=== PATIENT | female | born 1970 | race Caucasian/White ===

== ENCOUNTER 2018-10-20 15:32 | Emergency (ER) | payer OTHER ==
[~2018-10-20] VITALS: Ht 152.4 cm; Wt 59.6 kg
[2018-10-20 15:41] VITALS: Ht 152.4 cm; Wt 59.6 kg
[2018-10-20] MEDS ORDERED: FAMOTIDINE 20 MG TAB PO STA (16:12)
[2018-10-20] MEDS ORDERED: ONDANSETRON 4 MG INJ IV STA (16:12)
[2018-10-20] MEDS ORDERED: KETOROLAC 15 MG INJ IV STA (16:12)
[2018-10-20] MEDS ORDERED: SOD CHLORIDE 0.9% 1,000 ML IV STA (16:12)
[2018-10-20] MEDS ORDERED: LIDOCAINE/MYLANTA 40 ML BTL PO STA (16:12)
[2018-10-20] MEDS ORDERED: BELLADONNA/PHENOBARBITAL TAB PO STA (16:12)
--- NOTE | 2018-10-20 16:42 | ERD ---
ER Documentation Chief Complaint Chief Complaint epigastric pain x 5 days ; vomitting 4 x since yesterday HPI 48-year-old woman complaining of epigastric and right upper quadrant abdominal pain and burning x5 days she has had a few episodes of clear nonbloody nonbilious emesis as well but denies hematemesis, no blood per rectum or melena, no fevers or chills, no chest pain or shortness of breath. Patient denies chest pain and denies dysuria. Epigastric pain is been nonradiating nonexertional. She was sent here by medical clinic to rule out appendicitis given his above symptoms. ROS All systems reviewed and are negative except as per history of present illness. Medications Home Meds Active Scripts Esomeprazole Mag Trihydrate (Nexium) 40 Mg Capsule.dr, 20 MG PO DAILY, #30 CAP Prov:BINA ZAMBRANO MD 10/20/18 Famotidine* (Pepcid*) 20 Mg Tablet, 20 MG PO BID for 14 Days, TAB Prov:BINA ZAMBRANO MD 10/20/18 Mag Hydrox/Al Hydrox/Simeth (Maalox Advanced Suspension) 355 Ml Oral.susp, 2 TSP PO TID PRN for PAIN, #20 OZ Prov:BINA ZAMBRANO MD 10/20/18 Reported Medications Aspirin/Acetaminophen/Caffeine (Excedrin Migraine Caplet) 1 Each Tablet, 1 EACH PO NEEDED, TAB 10/20/18 Allergies Allergies: Coded Allergies: No Known Allergy (Unverified , 10/20/18) PMhx/Soc Medical and Surgical Hx: pt denies Medical Hx, pt denies Surgical Hx Hx Alcohol Use: No Hx Substance Use: No Hx Tobacco Use: No Smoking Status: Never smoker FmHx Family History: No diabetes Physical Exam Vitals Vital Signs Date Temp Pulse Resp B/P (MAP) Pulse Ox O2 O2 Flow FiO2 Time Delivery Rate 10/20/18 78 16 128/79 98 Room Air 17:51 (95) 10/20/18 99.3 84 18 135/79 98 15:41 (97) Physical Exam GENERAL: Well-developed, well-nourished, well-hydrated, in no apparent distress, looks nontoxic in appearance HEENT: Moist mucous membranes, pink conjunctiva, no cervical spine tenderness or step-off deformities, no goiter, no jaundice or icterus, extraocular movements intact without pain. No submandibular induration, and no pharyngeal erythema NEURO: Alert and oriented 3, cranial nerves II through XII intact bilaterally, pupils equal round reactive to light, no focal deficits or facial asymmetry, sensation intact distally Strength 5/5 in upper and lower extremities bilaterally CARDIAC: Regular rate and rhythm, no murmurs rubs or gallops LUNGS: Clear bilaterally no wheezing crackles or stridor ABDOMEN: Soft nontender, no guarding, no rigidity, no rebound, no psoas sign no obturator sign. Normoactive bowel sounds SKIN: Warm and dry to touch, no abrasions, contusions, or hematomas, no lacerations, no ecchymosis, no target lesions, and without ulcers EXTREMITIES: No clubbing cyanosis or edema, calves are bilaterally symmetrical, no Homans sign, no popliteal cord sign. Distal pulses equal and bilateral PSYCH: Normal affect without agitation or irritability Result Diagram: 10/20/18 1619 10/20/18 1619 Results 24 hrs Laboratory Tests Test 10/20/18 16:12 10/20/18 16:19 POC Beta HCG, Qualitative NEGATIVE White Blood Count 5.0 10^3/ul Red Blood Count 4.52 10^6/ul Hemoglobin 11.1 g/dl Hematocrit 35.7 % Mean Corpuscular Volume 79.0 fl Mean Corpuscular Hemoglobin 24.6 pg Mean Corpuscular Hemoglobin Concent 31.1 g/dl Red Cell Distribution Width 15.4 % Platelet Count 277 10^3/UL Mean Platelet Volume 10.2 fl Immature Granulocytes % 0.200 % Neutrophils % 69.5 % Lymphocytes % 19.9 % Monocytes % 9.0 % Eosinophils % 1.2 % Basophils % 0.2 % Nucleated Red Blood Cells % 0.0 /100WBC Immature Granulocytes # 0.010 10^3/ul Neutrophils # 3.5 10^3/ul Lymphocytes # 1.0 10^3/ul Monocytes # 0.5 10^3/ul Eosinophils # 0.1 10^3/ul Basophils # 0.0 10^3/ul Nucleated Red Blood Cells # 0.0 10^3/ul Prothrombin Time 12.7 Sec Prothrombin Time Ratio 1.0 INR International Normalized Ratio 0.94 Activated Partial Thromboplast Time 29.9 Sec Urine Color YELLOW Urine Clarity SLIGHTLY CLOUDY Urine pH 5.0 Urine Specific [place] 1.028 Urine Ketones NEGATIVE mg/dL Urine Nitrite NEGATIVE mg/dL Urine Bilirubin NEGATIVE mg/dL Urine Urobilinogen NEGATIVE mg/dL Urine Leukocyte Esterase NEGATIVE Michelet/ul Urine Microscopic RBC 1 /HPF Urine Microscopic WBC 3 /HPF Urine Squamous Epithelial Cells FEW /HPF Urine Mucus MANY /HPF Urine Hemoglobin 2+ mg/dL Urine Glucose NEGATIVE mg/dL Urine Total Protein NEGATIVE mg/dl Sodium Level 139 mmol/L Potassium Level 3.3 mmol/L Chloride Level 107 mmol/L Carbon Dioxide Level 24 mmol/L Anion Gap 8 Blood Urea Nitrogen 13 mg/dl Creatinine 0.51 mg/dl Est Glomerular Filtrat Rate mL/min > 60 mL/min Glucose Level 101 mg/dl Calcium Level 7.5 mg/dl Total Bilirubin 0.2 mg/dl Direct Bilirubin 0.00 mg/dl Indirect Bilirubin 0.2 mg/dl Aspartate Amino Transf (AST/SGOT) 21 IU/L Alanine Aminotransferase (ALT/SGPT) 21 IU/L Alkaline Phosphatase 74 IU/L Total Protein 6.9 g/dl Albumin 3.7 g/dl Globulin 3.20 g/dl Albumin/Globulin Ratio 1.15 Lipase 117 U/L Current Medications Medications Dose Sig/Ute Start Time Status Last (Trade) Ordered Route PRN Stop Time Admin Dose Reason Admin Sodium 1,000 ml @ Q1H STAT 10/20/18 DC 10/20/18 Chloride 1,000 mls/hr IV 16:12 10/20/18 16:25 17:11 Ondansetron 4 mg ONCE STAT 10/20/18 DC 10/20/18 HCl (Zofran IV 16:12 10/20/18 16:24 Inj) 16:14 Famotidine 20 mg ONCE STAT 10/20/18 DC 10/20/18 (Pepcid) PO 16:12 10/20/18 16:24 16:14 40 ml ONCE STAT 10/20/18 DC 10/20/18 Miscellaneous PO 16:12 10/20/18 16:24 Medication 16:14 (Gi Cocktail (2)) Belladonna/ 2 tab ONCE STAT 10/20/18 DC 10/20/18 Phenobarbital PO 16:12 10/20/18 16:24 () 16:14 Ketorolac 15 mg ONCE STAT 10/20/18 DC 10/20/18 Tromethamine IV 16:12 10/20/18 16:25 (Toradol) 16:14 Procedures/MDM IV line was established patient was placed on school lunch monitor rhythm strip revealed a sinus rhythm at about 80 bpm with upright P and T waves. Patient was afebrile I administered 1 L normal saline IV, Zofran 4 mg IV, GI cocktail p.o., fa motidine 20 mg p.o. and Toradol 15 mg IV Gallbladder ultrasound was performed. It was negative for acute inflammatory changes or signs of cholecystitis. CBC and electrolytes are normal, liver function tests were normal, urine analysis CT scan of the abdomen and pelvis was performed,IMPRESSION: No evidence of bowel obstruction or inflammation. There is no appendicitis. Enlarged heterogeneous fibroid uterus. The adnexal structures are obscured. Mild atherosclerotic calcification. No renal or ureteral calculi with no evidence of hydronephrosis. Bilateral low-density adrenal adenomas. Differential diagnoses considered, included but not limited to acute coronary syndrome, pulmonary embolism, aortic dissection, abdominal aortic aneurysm, sepsis, stroke, meningitis, encephalitis, pneumonia, appendicitis, cholecystitis, bowel obstruction, pyelonephritis, nephrolithiasis, cystitis, as well as metabolic, hematologic, and electrolyte abnormalities. As well as abscess, cellulitis, fractures, and dislocations. Patient feels much better at this time, and vital signs are normal, symptoms have improved. I did give strict instructions to return to the ED if symptoms continue or worsen, patient will otherwise follow-up with primary care physician. Patient understood instructions and agreed to plan. Disclaimer: Inadvertent spelling and grammatical errors are likely due to EHR/ dictation software use and do not reflect on the overall quality of patient care. Also, please note that the electronic time recorded on this note does not necessarily reflect the actual time of the patient encounter. Departure Diagnosis: Primary Impression: Abdominal pain Abdominal location: epigastric Qualified Codes: R10.13 - Epigastric pain Condition: Good BINA ZAMBRANO MD October 20, 2018 16:42
[2018-10-20] MEDS ORDERED: ASPI1TAB31 PO (16:59)
[2018-10-20] MEDS ORDERED: ESOM40CA PO (17:34)
[2018-10-20] MEDS ORDERED: FAMO-96 PO (17:34)
[2018-10-20] MEDS ORDERED: MAG355OR14 PO (17:34)
[2018-10-20 19:15] VITALS: BP 118/88; PULSE 77; RESP 18
== END 2018-10-20 19:26 | disposition home or self-care (01) ==
LOC: E/R 15:32
DX: R10.13 Epigastric pain (principal); R11.10 Vomiting, unspecified; Z79.82 Long term (current) use of aspirin
CPT/HCPCS: 36415; 74176; 76705; 80053; 81001; 81025; 83690; 85025; 85610; 85730; 96361; 96374; 96375; J1885; J2405; J7030; Z7502; Z7610

== ENCOUNTER 2018-11-02 10:17 | Emergency (ER) | payer OTHER ==
[~2018-11-02] VITALS: Ht 157.5 cm; Wt 60.0 kg
[~2018-11-02 10:17] MED LIST: ASPI1TAB31 PO; ESOM40CA PO; FAMO-96 PO; MAG355OR14 PO
[2018-11-02 10:20] VITALS: Ht 157.5 cm; Wt 60.0 kg
[2018-11-02] MEDS ORDERED: SOD CHLORIDE 0.9% 1,000 ML IV ONE (11:00)
[2018-11-02] MEDS ORDERED: METOCLOPRAMIDE 10 MG INJ IV ONE (11:00)
[2018-11-02] MEDS ORDERED: ACETAMINOPHEN 325 MG TAB PO ONE (11:00)
[2018-11-02] MEDS ORDERED: DIPHENHYDRAMINE 50 MG INJ IV ONE (11:00)
[2018-11-02] MEDS ORDERED: ONDA4TAB14 PO (12:58)
[2018-11-02] MEDS ORDERED: BUTA1CAP38 PO (12:58)
--- NOTE | 2018-11-02 13:04 | ERD ---
ER Documentation Chief Complaint Chief Complaint C/O HEADACHE , VOMITING /DIZZINESS , ONSET TODAY HPI 48-year-old female patient with a past medical history of migraine, hypertension, diabetes presents to the ED complaining of dizziness, headache, chills, body aches that started last night. States that she has some photophobia and phonophobia with her headache. Reports that her headache is located in the temporal region and was a gradual onset. Describes her pain as achy and rates it an 8 out of 10. Reports that last night she also had an episode of chest pain however it resolved. Patient reports that she feels anxious. Denies any shortness of breath, constipation, abdominal pain, neck stiffness. ROS All systems reviewed and are negative except as per history of present illness. Medications Home Meds Active Scripts Ondansetron (Ondansetron Odt) 4 Mg Tab.rapdis, 4 MG PO Q6H PRN for NAUSEA AND/OR VOMITING, #10 TAB Prov:JOSE ANGEL GILL PA-C 11/02/18 Aiethndbou-Fpsmbdtnnsvhc-Segerfqw* (Fioricet*) 50-300-40 Mg Capsule, 1 CAP PO Q4H PRN for HEADACHE, #20 CAP Prov:JOSE ANGEL GILL PA-C 11/02/18 Esomeprazole Mag Trihydrate (Nexium) 40 Mg Capsule.dr, 20 MG PO DAILY, #30 CAP Prov:BINA ZAMBRANO MD 10/20/18 Famotidine* (Pepcid*) 20 Mg Tablet, 20 MG PO BID for 14 Days, TAB Prov:BINA ZAMBRANO MD 10/20/18 Mag Hydrox/Al Hydrox/Simeth (Maalox Advanced Suspension) 355 Ml Oral.susp, 2 TSP PO TID PRN for PAIN, #20 OZ Prov:BINA ZAMBRANO MD 10/20/18 Reported Medications Aspirin/Acetaminophen/Caffeine (Excedrin Migraine Caplet) 1 Each Tablet, 1 EACH PO NEEDED, TAB 10/20/18 Allergies Allergies: Coded Allergies: No Known Allergy (Unverified , 10/20/18) PMhx/Soc Medical and Surgical Hx: pt denies Surgical Hx History of Surgery: No Anesthesia Reaction: No Hx Neurological Disorder: No Hx Respiratory Disorders: No Hx Cardiac Disorders: Yes (HTN) Hx Psychiatric Problems: No Hx Miscellaneous Medical Probl: Yes (MIGRAINE HEADACHE) Hx Alcohol Use: No Hx Substance Use: No Hx Tobacco Use: No Smoking Status: Never smoker FmHx Family History: No diabetes, No coronary disease Physical Exam Vitals Vital Signs Date Temp Pulse Resp B/P (MAP) Pulse Ox O2 O2 Flow FiO2 Time Delivery Rate 11/02/18 98.1 82 18 142/90 98 10:20 (107) Physical Exam Const: Oog-lvn-zwghtustl, well-nourished. In no acute distress. Head: Atraumatic, normocephalic Eyes: Normal Conjunctiva without injection. No purulent discharge. PERRLA. EOMI ENT: Normal external ear. Ear canal without erythema. Tympanic membrane pearly linn without effusion or bulging. Nasal canal clear with normal turbinates. Moist oropharynx without tonsillar exudates. Non-erythematous pharynx. Uvula midline. No drooling. No trismus. Neck: No cervical midline tenderness. Full range of motion. No meningismus. No cervical lymphadenopathy. No JVD. Resp: Clear to auscultation bilaterally. No wheezing, rhonchi, rales, or crackles. No accessory muscle use. No retractions. Cardio: Regular rate and rhythm. No murmurs, rubs or gallops. Abd: Soft, non tender, non distended. Normal bowel sounds. No palpable masses. No rebound tenderness. No guarding. Negative McBurney's Point. Negative Mu rphy's Sign. Skin: Normal skin turgor. No petechiae or rashes Back: No midline tenderness. No CVA tenderness. Ext: No cyanosis, or edema. Distal pulses intact bilaterally. Neur: Awake and alert. Normal gait. Normal coordination. Cranial Nerves II- VII intact. Normal finger to nose. Muscle strength 5/5. Sensation intact. Psych: Normal Mood and Affect Result Diagram: 11/02/18 1119 11/02/18 1119 Results 24 hrs Laboratory Tests Test 11/02/18 11:05 11/02/18 11:19 11/02/18 11:20 11/02/18 12:01 Bedside Glucose 124 mg/dL White Blood Count 11.3 10^3/ul Red Blood Count 4.71 10^6/ul Hemoglobin 11.2 g/dl Hematocrit 37.4 % Mean Corpuscular 79.4 fl Volume Mean Corpuscular 23.8 pg Hemoglobin Mean Corpuscular 29.9 g/dl Hemoglobin Concen t Red Cell 14.6 % Distribution Width Platelet Count 328 10^3/UL Mean Platelet 10.1 fl Volume Immature 0.300 % Granulocytes % Neutrophils % 91.2 % Lymphocytes % 6.2 % Monocytes % 1.8 % Eosinophils % 0.2 % Basophils % 0.3 % Nucleated Red 0.0 /100WBC Blood Cells % Immature 0.030 10^3/ul Granulocytes # Neutrophils # 10.3 10^3/ul Lymphocytes # 0.7 10^3/ul Monocytes # 0.2 10^3/ul Eosinophils # 0.0 10^3/ul Basophils # 0.0 10^3/ul Nucleated Red 0.0 10^3/ul Blood Cells # Sodium Level 140 mmol/L Potassium Level 4.2 mmol/L Chloride Level 107 mmol/L Carbon Dioxide 25 mmol/L Level Anion Gap 8 Blood Urea 11 mg/dl Nitrogen Creatinine 0.40 mg/dl Est Glomerular > 60 mL/min Filtrat Rate mL/min Glucose Level 125 mg/dl Calcium Level 8.6 mg/dl Total Bilirubin 0.3 mg/dl Direct Bilirubin 0.00 mg/dl Indirect 0.3 mg/dl Bilirubin Aspartate Amino 25 IU/L Transf (AST/SGOT) Alanine 25 IU/L Aminotransferase (ALT/SGPT) Alkaline 103 IU/L Phosphatase Troponin I < 0.012 ng/ml Total Protein 7.6 g/dl Albumin 4.0 g/dl Globulin 3.60 g/dl Albumin/Globulin 1.11 Ratio Urine Color STRAW Urine Clarity CLEAR Urine pH 8.0 Urine Specific 1.011 [place] Urine Ketones NEGATIVE mg/dL Urine Nitrite NEGATIVE mg/dL Urine Bilirubin NEGATIVE mg/dL Urine NEGATIVE mg/dL Urobilinogen Urine Leukocyte NEGATIVE [place]he[place]/ul Esterase Urine Hemoglobin NEGATIVE mg/dL Urine Glucose NEGATIVE mg/dL Urine Total NEGATIVE mg/dl Protein POC Beta HCG, NEGATIVE Qualitative Current Medications Medications Dose Sig/Ute Start Time Status Last (Trade) Ordered Route PRN Stop Time Admin Dose Reason Admin Sodium 1,000 ml @ Q1H ONCE 11/02/18 DC 11/02/18 Chloride 1,000 mls/hr IV 11:00 11:23 11/02/18 11:59 10 mg ONCE ONCE 11/02/18 DC 11/02/18 Metoclopramid IV 11:00 11:22 e HCl 5/20/19 11:01 (Reglan) 25 mg ONCE ONCE 11/02/18 DC 11/02/18 Diphenhydrami IV 11:00 11:22 ne HCl 11/02/18 11:01 (Benadryl) 650 mg ONCE ONCE 11/02/18 DC 11/02/18 Acetaminophen PO 11:00 11:22 (Tylenol 11/02/18 11:01 Tab) Procedures/MDM 48-year-old female patient past medical history of diabetes, hypertension, migraines presents the ED complaining of a temporal headache that is worsened with bright lights and loud noises. Patient also is experiencing some dizziness, body aches. Patient is afebrile and nontoxic-appearing. Patient was further worked up with CBC, CMP, chest x-ray, EKG UA, troponin, urine . Patient's pain and symptoms have improved after treatment with 10 mg IV Reglan, 25 mg IV Benadryl, 1 L of normal saline. CBC: No leukocytosis. No e/o of systemic infection. No e/o anemia. CMP: No e/o severe acidosis, alkalosis, renal failure, diabetic ketoacidosis, liver disease Troponin less than 0.012 Urine: No leukocyte esterase, no nitrites, no hematuria. Urine : Negative EKG reviewed and interpreted by Dr. Zambrano Rate/Rhythm: [81 bpm, Normal Sinus Rhythm] No ectopy, no ST elevations, normal axis. QRS, ST, T-waves: [No changes consistent w/ acute ischemia] Impression: [No evidence of ischemia or arrhythmia] Low suspicion for acute myocardial infarction, pneumothorax, pneumonia, cardiac tamponade, Xxyfz-Mixywsbsq-Jtswo Syndrome, Brugada Syndrome, pulmonary embolism, AAA, aortic dissection, thoracic aortic dissection, endocarditis, myocarditis, pericarditis, cocaine-related ischemia, Boerhaave's syndrome, cardiac dysrhythmias,meningitis, intracranial bleed, seizure, stroke, TIA or other emergent conditions. Diagnosis: Headache, Dizziness Discharge medications: Carol Rojo Follow up with primary care physician in 1-2 days for referral to [place]. Instructed patient to return to the ED sooner for any worsening symptoms. Patient's questions were answered. Patient understood and agreed with discharge plan. Patient discharged stable. Departure Diagnosis: Primary Impression: Headache Headache type: unspecified Headache chronicity pattern: unspecified pattern Intractability: not intractable Qualified Codes: R51 - Headache Additional Impression: Dizziness Condition: Stable Patient Instructions: Preventing Migraine Headaches: Triggers, Preventing Migraine Headaches: Medications and Lifestyle Changes, Headache, Migraine (Cl assical) Referrals: COMMUNITY CLINICS YOU HAVE RECEIVED A MEDICAL SCREENING EXAM AND THE RESULTS INDICATE THAT YOU DO NOT HAVE A CONDITION THAT REQUIRES URGENT TREATMENT IN THE EMERGENCY DEPARTMENT. FURTHER EVALUATION AND TREATMENT OF YOUR CONDITION CAN WAIT UNTIL YOU ARE SEEN IN YOUR DOCTORS OFFICE WITHIN THE NEXT 1-2 DAYS. IT IS YOUR RESPONSIBILITY TO MAKE AN APPOINTMENT FOR FOLOW-UP CARE. IF YOU HAVE A PRIMARY DOCTOR --you should call your primary doctor and schedule an appointment IF YOU DO NOT HAVE A PRIMARY DOCTOR YOU CAN CALL OUR PHYSICIAN REFERRAL HOTLINE AT IF YOU CAN NOT AFFORD TO SEE A PHYSICIAN YOU CAN CHOSE FROM THE FOLLOWING [facility] [address] [email or web address]. [facility] [address] [email or web address] [facility]. [facility] [address] [facility] [facility] [address] [facility] [address] [facility]. [facility] [address] [facility] [facility] YOU HAVE RECEIVED A MEDICAL SCREENING EXAM AND THE RESULTS INDICATE THAT YOU DO NOT HAVE A CONDITION THAT REQUIRES URGENT TREATMENT IN THE EMERGENCY DEPARTMENT. FURTHER EVALUATION AND TREATMENT OF YOUR CONDITION CAN WAIT UNTIL YOU ARE SEEN IN YOUR DOCTORS OFFICE WITHIN THE NEXT 1-2 DAYS. IT IS YOUR RESPONSIBILITY TO MAKE AN APPOINTMENT FOR FOLOW-UP CARE. IF YOU HAVE A PRIMARY DOCTOR --you should call your primary doctor and schedule and appointment IF YOU DO NOT HAVE A PRIMARY DOCTOR YOU CAN CALL OUR PHYSICIAN REFERRAL HOTLINE AT . IF YOU CAN NOT AFFORD TO SEE A PHYSICIAN YOU CAN CHOSE FROM THE FOLLOWING [facility] INSTITUTIONS: [facility] [address] [place] [address] [facility] [address] [place] [address] [address] [facility] Additional Instructions: Call your primary care doctor TOMORROW for an appointment during the next 2-3 days.See the doctor sooner or return here if your condition worsens before your appointment time. JOSE ANGEL GILL PA-C November 02, 2018 13:04
[2018-11-02 13:18] VITALS: BP 119/78; PULSE 96; RESP 18
== END 2018-11-02 13:20 | disposition home or self-care (01) ==
LOC: FTE 10:17
DX: R42 Dizziness and giddiness (principal); R51 Headache; E11.9 Type 2 diabetes mellitus without complications; I10 Essential (primary) hypertension; R11.10 Vomiting, unspecified
CPT/HCPCS: 71045; 80053; 81003; 81025; 82962; 84484; 85025; 93005; J1200; J2765; J7030; Z7610; 36415; 96374; 96375